=== PATIENT | male | born 1990 | race Hispanic/Latino ===

== ENCOUNTER 2019-05-19 10:31 | Emergency (ER) | payer BC ==
[~2019-05-19] VITALS: Ht 180.3 cm; Wt 117.9 kg
[2019-05-19] MEDS ORDERED: HYDROCODONE/APAP 7.5MG-325MG 1 EA TAB PO PRN (10:45)
[2019-05-19] MEDS ORDERED: DEXAMETHASONE SOD PHOS 10 MG/1 ML VIAL IM ONE (10:45)
[2019-05-19] MEDS ORDERED: CYCLOBENZAPRINE HCL 10 MG TAB PO ONE (10:45)
[2019-05-19] MEDS ORDERED: KETOROLAC TROMETHAMINE 60 MG/2 ML VIAL IM ONE (10:45)
[2019-05-19] MEDS ORDERED: LIDOCAINE 4% PATCH TP ONE (10:45)
--- NOTE | 2019-05-19 12:24 | Diagnostic Imaging Report ---
History: Severe back pain Comparison studies: None Technique: Axial images were obtained through the lumbar spine. Coronal and sagittal images reconstructed from the axial data. Dose modulation, iterative reconstruction, and/or weight based adjustment of the mA/kV was utilized to reduce the radiation dose to as low as reasonably achievable. Intravenous contrast: None Findings: Number of non-rib bearing vertebral bodies: 5 Alignment: Normal lumbar lordosis. Minimal lumbar levocurvature. Soft tissues: No uterine abnormalities. Paraspinal muscles: Well-preserved, no atrophy. Sacroiliac joints: No degenerative changes. Vertebrae: No fracture or evidence of infection. No lytic or blastic lesions. Degenerative changes: L1-L2: No abnormalities. L2-L3: Small disc bulge with partially calcified anulus indents the thecal sac without significant canal stenosis. Patent foramina. L3-L4: Mildly degenerated disc. Disc osteophyte complex and mildly thickened ligamentum flavum result in mild canal stenosis. Mild bilateral foraminal stenosis due to disc ossify complex. L4-L5: Mildly degenerated disc. Disc ossify complex, thickened ligamentum flavum and mild facet arthrosis with mild canal stenosis and narrowing of the bilateral subarticular recesses. Mild bilateral foraminal stenosis due to disc osteophyte complex and facet arthrosis. L5-S1: Mildly degenerated disc. Disc osteophyte complex and mild facet arthrosis with moderate right and mild left foraminal stenosis. IMPRESSION: 1. No acute osseous abnormalities. 2. Mild multilevel disc degeneration. 3. Mild degenerative canal stenosis from L3 to S1. 4. Degenerative foraminal stenosis from L3 to S1, worse/moderate on the right at L5-S1. Signed by: Dr. Antoni Headley M.D. on 05/19/2019 12:21 PM
[2019-05-19 12:45] VITALS: BP 152/85
== END 2019-05-19 12:45 | disposition home or self-care (01) ==
LOC: ER 10:31
DX: M54.42 Lumbago with sciatica, left side (principal)
CPT/HCPCS: 72131; 99283; J1100; J1885

== ENCOUNTER 2024-05-20 20:56 | Emergency (ER) | payer BC ==
[~2024-05-20] VITALS: Ht 172.7 cm; Wt 117.9 kg
[~2024-05-20 20:56] MED LIST: LACTULOSE20 GM/30 M PO; MEDROL4 M2 PO; ORPHENADRINE C100 MG PO
[2024-05-20 21:10] VITALS: PULSE 74; RESP 18; TEMP 98.6; O2SAT 99
[2024-05-20] MEDS ORDERED: PREDNISONE20 MG PO (21:22)
[2024-05-20] MEDS ORDERED: KETOROLAC TROME10 MG PO (21:22)
[2024-05-20] MEDS: KETOROLAC TROMETHAMINE 60 MG/2 ML VIAL IM ONE (21:27)
[2024-05-20] MEDS: DEXAMETHASONE SOD PHOS 10 MG/1 ML VIAL IM STA (21:27)
== END 2024-05-20 21:38 | disposition home or self-care (01) ==
LOC: ER 21:14
DX: M54.50 Low back pain, unspecified (principal); G89.29 Other chronic pain
CPT/HCPCS: 99282; J1100; J1885